=== PATIENT | female | born 1980 | race Hispanic/Latino ===

== ENCOUNTER → 2024-03-04 08:45 | Outpatient (REF) | payer OTHER, SELFPAY | LOC: RAD 08:45 | PROVIDERS: ATTENDING PHYSICIAN Obstetrics & Gynecology; FAMILY PHYSICIAN Physician Assistant Medical | DX: T85.898A Other specified complication of other internal prosthetic devices, implants and grafts, initial encounter (principal) | CPT/HCPCS: 76830; 76856 ==

== ENCOUNTER 2024-04-12 17:10 | Emergency (ER) | payer OTHER, SELFPAY ==
[2024-04-12 17:16] VITALS: BP 151/91
[2024-04-12 17:33] LABS: % Basophils 1.6 % (0-2); % Eosinophils 1.1 % (0-6); % Immature Granulocytes 0.2 % (0-0.5); % Lymphocytes 39.6 % (20.5-51.1); % Monocytes 11.2 % (1.7-9.3); % Neutrophils 46.3 % (42.2-75.2); Absolute Basophils 0.1 10^3/uL (0-0.2); Absolute Eosinophils 0.1 10^3/uL (0-0.7); Absolute Lymphocytes 2.5 10^3/uL (1.2-3.4); Absolute Monocytes 0.7 10^3/uL (0.1-0.6); Absolute Neutrophils 2.9 10^3/uL (1.4-6.5); Hematocrit 34.2 % (37.0-47.0); Hemoglobin 12.3 g/dL (12.0-16.0); Mean Corpuscular Hgb 31.1 pg (27.0-31.0); Mean Corpuscular Volume 86.4 fL (81.0-99.0); Nucleated Red Blood Cells % 0 %; Platelet Count 308 10^3/uL (130-400); Red Blood Cell Count 3.96 10^6/uL (4.20-5.40); Red Cell Dist. Width 12.8 % (11.5-14.5); White Blood Cell Count 6.2 10^3/uL (4.8-10.8)
[2024-04-12 17:52] LABS: ALT (SGPT) 13 U/L (0-35); AST (SGOT) 21 U/L (14-36); Albumin 4.7 g/dl (3.5-5.0); Alkaline Phosphatase 37 U/L (38-126); Blood Urea Nitrogen 12 mg/dl (7-17); Calcium 9.9 mg/dl (8.4-10.2); Carbon Dioxide 24 mmol/L (22-30); Chloride 102 mmol/L (98-107); Glucose 139 mg/dl (70-99); Potassium 3.8 mmol/L (3.5-5.1); Sodium 140 mmol/L (135-145); Total Bilirubin 0.5 mg/dl (0.2-1.3); Total Protein 7.6 g/dl (6.3-8.2); eGFR > 60.00
[2024-04-12 18:30] VITALS: BP 128/68
--- NOTE | 2024-04-12 18:31 | ED.GENMED ---
History of Present Illness
General
Chief Complaint: DVT/Possible Blood Clot
Source: patient
Exam Limitations: none
Time Seen by Provider: 04/12/24 17:58
History of Present Illness
History of Present Illness:
This is a 43 year old female that comes in with multiple complaints. States that a few days ago and then yesterday she noticed more some bilateral leg pain. State that it was in the back of the legs and more on the left side. States that she felt
like the left leg felt numb. States that she took Tylenol and went to the [facility]. States that her discomfort continues. today she felt the same so she went to and was sent to the ER. Also today she started with some tingling in the left
arm. States that she always has a headache. Denies any fever, chills, chest pain, SOB, abd pain, nausea, vomiting, diarrhea, dizziness, urinary burning.
Past History
Past History
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
ED Past Surgical History: Other (ganglion cyst remove)
Social History
Tobacco: Non-smoker
Alcohol: Occasional
Drug: None
Personal:
Living: with family
Review of Systems
Review of Systems
All Other Systems: ROS reviewed and negative except as documented in HPI and ROS
Constitutional: Reports no symptoms; Denies fever or chills
EENT: Reports no symptoms
Respiratory: Reports no symptoms; Denies cough or trouble breathing
Cardiac: Reports no symptoms; Denies chest pain
ABD/GI: Reports no symptoms; Denies abdominal pain, nausea, vomiting or diarrhea
: Reports no symptoms; Denies dysuria, frequency or urgency
Musculoskeletal: Reports other (Bilateral leg pain with numbness/tingling)
Skin: Reports no symptoms
Neurological: Reports headache (Always); Denies dizzy
Psychiatric: Reports no symptoms
Phy Exam
General Physical Exam
General Presentation: well appearing and no apparent distress
General age: appears stated age
General Skin: warm and dry
General Habitus: normal
General Mental: alert
General Hydration: appears well hydrated
ENT Exam
ENT Exam: TM's normal, pharynx normal and neck supple
Eye Exam
Eye Exam: PERRL and EOMI
Cardiovascular Exam
Cardiovascular Exam: regular rate/rhythm, no edema and normal peripheral pulses
Pulmonary Exam
Pulmonary Exam: lungs clear, no respiratory distress, no rales, chest non tender, no crackles, no rhonchi, no wheezing and no cough
Gastrointestinal Exam
Gastrointestinal Exam: normal bowel sounds, non tender, soft, no organomegaly, no pulsatile mass and non distended
NIH Stroke Score
Level of Consciousness: 0 - Alert
LOC questions: 0-Answers both correctly
LOC Commands: 0-Performs both correctly
Best Gaze: 0-Normal
Visual Murrell: 0=Normal, no visual loss
Facial palsy: 0=Normal, symmetrical
Motor - Right Arm: 0=No drift 10 seconds
Motor - Left Arm: 0=No drift 10 seconds
Motor - Right Le-No drift 5 seconds
Motor - Left Le-No drift 5 seconds
Limb Ataxia: 0-Absent
Sensation: 0-Normal
Best Language: 0-No aphasia
Dysarthria: 0-Normal
Extinction and Inattention: 0-No abnormality
Total Score:: 0
Musculoskeletal Exam
Musculoskeletal Exam: full ROM, no edema and other (Hand grasp and push pulls equal)
Skin Exam
Skin Exam: normal color, warm/dry, no rash, no petechia and other (negative for any swelling or redness)
Course
Orders/Labs/Results
Orders:
Orders
04/12/24 17:24
Complete Blood Count/With Diff Urgent
Comprehensive Metabolic Panel Urgent
HCG, Serum Qualitative Screen Urgent
04/12/24 18:30
CT Head W/o Iv Contrast Urgent
Comment:
Reason For Exam: left sided numbness and tingling.
US Legs, Bilateral [US Periph Venous LOWER Ext Yan] Urgent
Comment:
Reason For Exam: pain more left then right
04/12/24 18:39
Electrocardiogram (*1) Urgent
Reason for Study: Other
Other Reason for Exam: numbness/Tingling
EKG- Treatment ONCE
04/12/24 18:50
Add On- LAB Urgent
Tests Added?: hcg
Abnormal Lab Results
04/12/24
17:24
RBC 3.96 L 10^6/uL
(4.20-5.40)
Hct 34.2 L %
(37.0-47.0)
MCH 31.1 H pg
(27.0-31.0)
Absolute Monos (auto) 0.7 H 10^3/uL
(0.1-0.6)
Monocytes % 11.2 H %
(1.7-9.3)
Glucose 139 H mg/dl
(70-99)
Alkaline Phosphatase 37 L U/L
(38-126)
04/12/24 17:24
04/12/24 17:24
glucose nonfasting. Alk phos every slightly elevated. HCG negative
Vital Signs
Initial and Last Documented VS:
Initial Vital Signs
Temp Pulse Resp BP Pulse Ox
99.3 F 121 20 151/91 100
04/12/24 17:16 04/12/24 17:16 04/12/24 17:16 04/12/24 17:16 04/12/24 17:16
Last Documented Vital Signs
Temp Pulse Resp BP Pulse Ox
99.3 F 75 20 129/77 97
04/12/24 17:16 04/12/24 18:30 04/12/24 18:30 04/12/24 20:00 09/02/24 18:30
MDM/Problems Addressed
Differential Diagnosis Includes:
Complicated migraine, Parasthesias
MDM/Problems Addressed:
This is a 43 year old female that comes in with c/o pain in both legs, Numbness and tingling in the left leg and left arm
Will check labs CT head and US both legs.
Back into see patient. Explained that her US and CT of the head are normal. This may just be Paraesthesias. Patient to follow up with the family doctor. Return with any concerns.
Chronic conditions affecting care:
Migraines
Acute Exacerbation and/or Progression of Chronic Illness:
Migraines
*Radiology
Radiology exam reviewed: radiology read reviewed (US- Normal. NO evidence of deep venous thrombosis. CT head-No acute intracranial abnormality noted.)
*Pulse Oximetry
Patient hypoxic: no
*Process Safety Specialist Interpretation
Rate: Process Safety Specialist- N/A
*Critical Care Note
Total Time (30-74mins, 75-104mins- exclusive of procedures): Not Applicable
ED Attending Note
-
Portions of this chart may have been created with voice recognition software.� Occasional wrong word or��sound alike� substitutions may have occurred due to the inherent limitations of voice recognition software.
Discharge Plan
Departure
Patient Disposition: Home (Routine Discharge)
Date of Disposition: 04/12/24
Time of Disposition: 20:33
Patient with high blood pressure during this ER visit?: Yes
Condition: Good
Covid-19: Not Applicable
Discharge Problem:
Numbness and tingling of left arm and leg, Headache
Instructions: Paresthesia (DC), BLOOD PRESSURE
Referrals:
Olga Guzman PA-C [Family Provider] - Follow up in 2-3 days
Activity Restrictions/Additional Instructions:
As discussed, your blood work shows that your blood sugar is elevated. Please follow up with the family doctor for recheck. Your Ultrasound and CT of the head are both normal. Please increase your water intake to 8-8oz glasses of water daily.
Tylenol or ibuprofen for pain. IF YOU HAVE INCREASED OR CHANGING PAIN, OR YOU HAVE ANY OTHER CONCERNS PLEASE RETURN TO THE EMERGENCY ROOM.
Interventions
Interventions:
*Risk Screen - Suicide Last Done: 04/12/24 18:30
*General Assessment Last Done: 04/12/24 18:30
*Neglect/Abuse Screening Last Done: 04/12/24 18:30
ED- Cardiac Assessment Last Done: 04/12/24 18:30
ED- Pulmonary Assessment Last Done: 04/12/24 18:30
ED-Peripheral Vascular Assessment Last Done: 04/12/24 18:30
ED-Skin Assessment Last Done: 04/12/24 18:30
Discharge Date and Time
Print Language: TURKISH
[2024-04-12 19:45] LABS: HCG, Serum Qualitative Screen Negative
[2024-04-12 19:46] VITALS: BP 124/71
[2024-04-12 20:00] VITALS: BP 129/77
== END 2024-04-12 21:01 | disposition home or self-care (01) ==
LOC: EMR 17:10
PROVIDERS: Emergency Medicine; EMERGENCY PHYSICIAN Emergency Medicine; FAMILY PHYSICIAN Physician Assistant Medical
DX: R20.2 Paresthesia of skin (principal); R20.0 Anesthesia of skin; R51.9 Headache, unspecified; M79.605 Pain in left leg; M79.604 Pain in right leg
CPT/HCPCS: 99285; 70450; 80053; 84703; 85025; 93005; 93970

== ENCOUNTER → 2024-09-04 09:31 | Outpatient (REF) | payer OTHER, SELFPAY | LOC: WDC 09:31 | PROVIDERS: ATTENDING PHYSICIAN Obstetrics & Gynecology; FAMILY PHYSICIAN Physician Assistant Medical | DX: Z12.31 Encounter for screening mammogram for malignant neoplasm of breast (principal) | CPT/HCPCS: 77063; 77067 ==

== ENCOUNTER 2024-10-05 18:09 | Emergency (ER) | payer OTHER, SELFPAY ==
[2024-10-05 18:28] VITALS: BP 142/92
[2024-10-05 18:46] LABS: % Basophils 0.9 % (0-2); % Eosinophils 0.9 % (0-6); % Immature Granulocytes 0.3 % (0-0.5); % Lymphocytes 46.9 % (20.5-51.1); % Monocytes 7.1 % (1.7-9.3); % Neutrophils 43.9 % (42.2-75.2); Absolute Basophils 0.1 10^3/uL (0-0.2); Absolute Eosinophils 0.1 10^3/uL (0-0.7); Absolute Lymphocytes 3.1 10^3/uL (1.2-3.4); Absolute Monocytes 0.5 10^3/uL (0.1-0.6); Absolute Neutrophils 2.9 10^3/uL (1.4-6.5); Hematocrit 35.1 % (37.0-47.0); Hemoglobin 12.1 g/dL (12.0-16.0); Mean Corp Hgb Conc. 34.5 g/dL (33.0-37.0); Mean Platelet Volume 8.5 fL (7.4-10.4); Nucleated Red Blood Cells % 0 %; Platelet Count 280 10^3/uL (130-400); Red Cell Dist. Width 13.3 % (11.5-14.5); White Blood Cell Count 6.6 10^3/uL (4.8-10.8)
[2024-10-05 19:08] LABS: ALT (SGPT) 16 U/L (0-35); AST (SGOT) 24 U/L (14-36); Albumin 5.2 g/dl (3.5-5.0); Alkaline Phosphatase 43 U/L (38-126); Blood Urea Nitrogen 10 mg/dl (7-17); Calcium 9.9 mg/dl (8.4-10.2); Carbon Dioxide 24 mmol/L (22-30); Chloride 96 mmol/L (98-107); Glucose 98 mg/dl (70-99); Potassium 3.6 mmol/L (3.5-5.1); Sodium 133 mmol/L (135-145); Total Bilirubin 0.7 mg/dl (0.2-1.3); Total Protein 7.8 g/dl (6.3-8.2); eGFR > 60.00
--- NOTE | 2024-10-05 21:36 | ED.GENMED ---
History of Present Illness
General
Chief Complaint: Dizziness
Source: patient
Exam Limitations: none
Time Seen by Provider: 10/05/24 21:26
Nursing documentation reviewed up to this point in time: agreed with
History of Present Illness
History of Present Illness:
44-year-old female presents emergency ferment complaining of dizziness and spinning since Friday, worse when she lays down. She was seen in the urgent care, and sent to the emergency department. She has not taken any medication for this. She
denies any headache or vision changes. Denies any fever. She had a cold several weeks ago.
Past History
Past History
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
ED Past Surgical History: Other (ganglion cyst remove)
Social History
Tobacco: Non-smoker
Alcohol: Occasional
Drug: None
Personal:
Living: with family
Review of Systems
Review of Systems
Allergies reviewed?: Yes
All Other Systems: Not applicable
Constitutional: Reports no symptoms
EENT: Reports no symptoms
Respiratory: Reports no symptoms
Cardiac: Reports no symptoms
ABD/GI: Reports no symptoms
: Reports no symptoms
Musculoskeletal: Reports no symptoms
Skin: Reports no symptoms
Neurological: Reports dizzy
Endocrine: Reports no symptoms
Hematologic/Lymphatic: Reports no symptoms
Psychiatric: Reports no symptoms
Phy Exam
Physical Exam
Physical Exam:
Physical Exam
General: no apparent distress, not acutely ill
Neck: supple. no meningeal signs. normal posterior pharynx
Heart: s1/s2 regular rate and rhythm, no murmur. equal radial
pulses.
HEENT: Pupils equal round reactive to light, EOMI
Lungs: no acute respiratory distress. clear bilaterally
Abdomen: normal bowel sounds. not tender. no CVAT
Neuro: alert and oriented. no focal neurological deficits cranial nerves II through XII intact
Skin: no rash
Psychiatric: well kept. interactive and cooperative
Extremities: no edema. no calf tenderness. negative homans. good distal pulses
[place]-Hallpike maneuver positive to the left
Course
Orders/Labs/Results
Orders:
Orders
10/05/24 18:10
Electrocardiogram (*1) Urgent
Reason for Study: Vertigo / Dizzy
EKG- Treatment ONCE
10/05/24 18:[address] [CT Head W/o Iv Contrast] Urgent
Comment:
Reason For Exam: dizziness
10/05/24 18:38
CMP [Comprehensive Metabolic Panel] Urgent
Complete Blood Count/With Diff Urgent
Abnormal Lab Results
10/05/24
18:38
RBC 3.90 L 10^6/uL
(4.20-5.40)
Hct 35.1 L %
(37.0-47.0)
Sodium 133 L mmol/L
(135-145)
Chloride 96 L mmol/L
(98-107)
Albumin 5.2 H g/dl
(3.5-5.0)
10/05/24 18:38
10/05/24 18:38
Vital Signs
Initial and Last Documented VS:
Initial Vital Signs
Temp Pulse Resp BP Pulse Ox
98.4 F 82 16 142/92 100
10/05/24 18:28 10/05/24 18:28 10/05/24 18:28 10/05/24 18:28 10/05/24 18:28
Last Documented Vital Signs
Temp Pulse Resp BP Pulse Ox
98.4 F 82 16 142/92 100
10/05/24 18:28 10/05/24 18:28 10/05/24 18:28 10/05/24 18:28 10/05/24 18:28
MDM/Problems Addressed
Differential Diagnosis Includes:
CVA, vertigo
MDM/Problems Addressed:
44-year-old female with vertigo, suspect benign peripheral. Doubt CVA or TIA. Stable for discharge. Will treat with meclizine, prescription given for physical therapy.
*Radiology
Radiology exam reviewed: radiology read reviewed (CT head no acute findings)
*Pulse Oximetry
Patient hypoxic: no
*EKG
Interpreted by ED Provider?: Yes
EKG Intrepretation Date: 10/05/24
EKG Intrepretation Time: 18:15
Interpretation: normal
Comparison EKG: no changes
Heart Rate: 84
Rate: normal
Rhythm: sinus
[place]: normal axis
Interval: normal interval
QRS Pattern: normal QRS
Ischemia: no ischemia
*Company Tanker Truck Driver Interpretation
Rate: normal
Interpretation: normal
Heart Rate: 82
Rhythm: sinus
*Critical Care Note
Total Time (30-74mins, 75-104mins- exclusive of procedures): Not Applicable
Patient Management
Social determinants of health affecting care: Living situation and Strong social support
Escalation/DeEscalation of care consider admission/obs:
admit not indicated
ED Attending Note
-
Portions of this chart may have been created with voice recognition software.� Occasional wrong word or��sound alike� substitutions may have occurred due to the inherent limitations of voice recognition software.
Discharge Plan
Departure
Patient Disposition: Home (Routine Discharge)
Date of Disposition: 10/05/24
Time of Disposition: 21:41
Patient with high blood pressure during this ER visit?: Yes
Condition: Good
Discharge Problem:
Dizziness
Instructions: Vertigo (a Type of Dizziness) (DC), BLOOD PRESSURE
Prescriptions:
New
meclizine 25 mg tablet
25 mg PO TID PRN (Reason: dizziness) Qty: 10 0RF
Interventions
Interventions:
*Risk Screen - Suicide Last Done: 10/05/24 18:28
*General Assessment Last Done: 10/05/24 18:28
*Neglect/Abuse Screening Last Done: 10/05/24 18:28
*ED COVID-19 Vaccine History Last Done: 10/05/24 18:28
Discharge Date and Time
Print Language: [place]
[2024-10-05 21:51] VITALS: BP 131/90
== END 2024-10-05 22:00 | disposition home or self-care (01) ==
LOC: EMR 18:09
PROVIDERS: Emergency Medicine; EMERGENCY PHYSICIAN Emergency Medicine; FAMILY PHYSICIAN Physician Assistant Medical
DX: R42 Dizziness and giddiness (principal); R03.0 Elevated blood-pressure reading, without diagnosis of hypertension; G43.909 Migraine, unspecified, not intractable, without status migrainosus; Q24.8 Other specified congenital malformations of heart; Z85.828 Personal history of other malignant neoplasm of skin
CPT/HCPCS: 99284; 70450; 80053; 85025; 93005

== ENCOUNTER 2024-10-07 18:02 | Outpatient (RCR) | payer OTHER, SELFPAY | END 2024-10-07 23:59 | disposition home or self-care (01) | LOC: RPT 18:02 | PROVIDERS: ATTENDING PHYSICIAN Physician Assistant Medical | DX: H81.12 Benign paroxysmal vertigo, left ear (principal); Z73.6 Limitation of activities due to disability | CPT/HCPCS: 97112; 97162 ==

== ENCOUNTER 2024-10-11 18:40 | Outpatient (RCR) | payer OTHER, SELFPAY | END 2024-10-11 23:59 | disposition home or self-care (01) | LOC: RPT 18:40 | PROVIDERS: ATTENDING PHYSICIAN Physician Assistant Medical | DX: H81.12 Benign paroxysmal vertigo, left ear (principal); Z73.6 Limitation of activities due to disability | CPT/HCPCS: 97112 ==

== ENCOUNTER → 2024-12-23 09:05 | Outpatient (REF) | payer OTHER, SELFPAY | LOC: RAD 09:05 | PROVIDERS: ATTENDING PHYSICIAN Obstetrics & Gynecology; FAMILY PHYSICIAN Physician Assistant Medical | DX: Z30.433 Encounter for removal and reinsertion of intrauterine contraceptive device (principal) | CPT/HCPCS: 76830; 76856 ==

== ENCOUNTER → 2025-01-13 08:58 | Outpatient (REF) | payer OTHER, SELFPAY | LOC: WDC 08:58 | PROVIDERS: ATTENDING PHYSICIAN Obstetrics & Gynecology; FAMILY PHYSICIAN Physician Assistant Medical | DX: R92.2 Inconclusive mammogram (principal) | CPT/HCPCS: 76641 ==